=== PATIENT | male | born 1950 | race Caucasian/White ===

== ENCOUNTER 2021-05-07 10:10 | Inpatient (IN) | payer MEDICARE, OTHER ==
[~2021-05-07] VITALS: Ht 180.3 cm; Wt 92.0 kg
[2021-05-07] MEDS ORDERED: VENTAER INH (10:48)
[2021-05-07 10:52] LABS: BASO % 0.2 % (0.0-1.0); EOS % 0.2 % (0.0-3.0); HEMATOCRIT 44.3 % (42.0-52.0); HEMOGLOBIN 15.2 g/dl (13.5-17.5); LYMPH # 0.9 10^3/uL (1.5-5.0); LYMPH % 9.3 % (24.0-44.0); MEAN CORPUSCULAR HEMOGLOBIN 31.1 pg (27.0-33.0); MEAN CORPUSCULAR HGB CONC 34.3 g/dl (32.0-36.5); MEAN CORPUSCULAR VOLUME 90.6 fl (80.0-96.0); MONO # 0.6 10^3/uL (0.0-0.8); MONO % 6.3 % (2.0-8.0); NEUTROPHILS # 8.2 10^3/uL (1.5-8.5); NEUTROPHILS % 83.1 % (36.0-66.0); PLATELET COUNT, AUTOMATED 357 10^3/uL (150-450); RED BLOOD COUNT 4.89 10^6/uL (4.30-6.10); WHITE BLOOD COUNT 9.9 10^3/uL (4.0-10.0)
[2021-05-07 11:15] LABS: BLOOD UREA NITROGEN 20 MG/DL (7-18); CALCIUM LEVEL 8.5 MG/DL (8.8-10.2); CARBON DIOXIDE LEVEL 25 MEQ/L (21-32); CHLORIDE LEVEL 104 MEQ/L (98-107); CREATININE FOR GFR 1.28 MG/DL (0.70-1.30); GLUCOSE, FASTING 145 MG/DL (70-100); POTASSIUM SERUM 3.9 MEQ/L (3.5-5.1); SODIUM LEVEL 139 MEQ/L (136-145)
--- NOTE | 2021-05-07 11:15 | REP ---
INDICATION: DYSPNEA/COUGH. COMPARISON: None. TECHNIQUE: AP portable seated, lordotic. FINDINGS: EKG leads overlie the chest. Lung urena show some basilar fibrotic change on the left greater than right. No gross effusion, dense consolidation with air bronchograms or parenchymal mass. The patient is rotated slightly towards the right. The aorta is a tortuous. The airway is intact. There is no gross cardiomegaly or edema. IMPRESSION: 1. Some basilar fibrotic changes right greater than left without dense consolidation with air bronchograms, gross effusion, cardiomegaly or judith edema. Tortuous aorta is evident. Bones grossly intact. No free air. <Electronically signed by Stefan Elliott > 05/07/21 1111
[2021-05-07 11:16] LABS: ALBUMIN 2.8 GM/DL (3.2-5.2); ALT/SGPT 47 U/L (12-78); BILIRUBIN,DIRECT 0.5 MG/DL (0.0-0.2); BILIRUBIN,TOTAL 1.1 MG/DL (0.2-1.0); TOTAL PROTEIN 6.7 GM/DL (6.4-8.2)
[2021-05-07] MEDS ORDERED: dexameTHASONE 4 MG/ML 1ML VIAL (J1100 PER 1MG) IV ONE (11:25)
[2021-05-07] MEDS: COMBIVENT RESPIMAT 100-20MCG INHALER 4GM INH SCH ×7 (11:41→23:19)
[2021-05-07] MEDS ORDERED: ALBUTEROL 90 MCG/ACT 8GM HFA INHALER INH PRN (12:00)
[2021-05-07] MEDS ORDERED: ACETAMINOPHEN TAB 650MG DOSE (2X325MG) PO PRN (12:00)
--- NOTE | 2021-05-07 12:01 | HPEPDOC ---
[facility] Medical History & Physical Date of Admission May 07, 2021 Date of Service: May 07, 2021 Attending Physician: Jhoana Diaz MD History and Physical CHIEF COMPLAINT: increased weakness, SOB HISTORY OF PRESENT ILLNESS: Patient is a 70-year-old male with no significant past medical history who presented to [facility] emergency room with the chief complaint of increased weakness and shortness of breath.Patient recently drove to [place] to see his family, arrived on 04/26/21. Patient states he started feeling run down, lethargic 04/25/21. He says he had fevers, chills, some nonbloody diarrhea, productive cough of green/white color, lightheadedness, dizziness, increase weakness, decreased intake of fluids and food. He was tested on 04/26/21 and COVID-19, he then came back to [place]. He called the Dept of Health when he came back and tested positive again at the [facility]. Denies n/v/d, abdominal pain. Today when he went to brush his teeth he was increasingly weak and felt like he was going to fall over. He denies falls but this was concerning as he lives alone. He has not been vaccinated. Was brought to the emergency room to be further evaluated. In the ER, vital signs showed temperature 96.3, heart rate 75, respiratory rate 20, 125/72, oxygen saturation on room air 8788 percent. He is placed on 2 L and saturating at 93%. The patient had obvious shortness of breath with ambulation a nd movement. He appeared to be weaker. Chest x-ray did not show concern for pneumonia. WBC was within normal limits. Other labs were within normal limits. The patient was admitted with a diagnosis of shortness of breath, hypoxia secondary to COVID 19 infection. ROS: Neg except for what is mentioned above PAST MEDICAL HISTORY: None PAST SURGICAL HISTORY: None SOCIAL HISTORY: Denies smoking, drinking, illicit drug use. Very active patient, nordic walks frequently. Patient lives alone. PCP- Dr. Carroll FAMILY HISTORY: Father- HTN, DM. at 69 MOther- lung cancer. in 50's ALLERGIES: Please see below. HOME MEDICATIONS: Please see below. PHYSICAL EXAMINATION: VS: 96.3, heart rate 75, respiratory rate 20, 125/72, oxygen saturation on room air 8788 percent. He is placed on 2 L and saturating at 93%. CONSTITUTIONAL: appears lethargic, resting in bed, AAO x 3 EYES: PERRLA, EOM intact HENT, MOUTH: Normocephalic, atraumatic, moist mucous membranes, NC in place NECK: SUPPLE, no JVD, no lymphadenopathy, no carotid bruit CV: Regular rate and rhythm, S1S2 normal, no murmurs/rubs/gallops RESPIRATORY: Clear to auscultation bilaterally, no rales/rhonchi/wheezes GI: BS positive in 4 quadrants, soft, nontender, nondistended, no rebound or guarding, no organomegaly : Deferred MUSCULOSKELETAL: Normal ROM. No cyanosis, clubbing, swelling, joint deformity, extremity edema INTEGUMENTARY: Intact, no rashes, no lesions, no erythema NEUROLOGIC: Cranial Nerves II-XII are intact, no focal deficits PSYCHIATRIC: tearful with examination LABORATORY DATA: Please see below IMAGING: CXR: 1. Some basilar fibrotic changes right greater than left without dense consolida tion with air bronchograms, gross effusion, cardiomegaly or judith edema. Tortuous aorta is evident. Bones grossly intact. No free air. ASSESSMENT: 70-year-old male with no significant past medical history admitted with a diagnosis of shortness of breath, hypoxia secondary to COVID 19 infection. PLAN: Shortness of breath, hypoxia secondary to Covid 19 infection -Currently saturating well on 2 L nasal cannula -ABG shows PO2 60s, pH 7.5- primary respiratory alkalosis likely secondary to hyperventilation. -Follow-up procalcitonin and BNP -Chest x-ray above -Started on remdesivir, dexamethasone, supplemental O2, incentive spirometry, awake pronation -Covid 19 labs ordered -Precautions Weakness 2/2 to COVID-19 infection, dehydration -Encourage fluid and food if possible -Started on IV fluids -Follow-up PT/OT eval -Treatment for Covid 19 above DVT prophylaxis -lovenox DISPOSITION: Admitted to Covid unit. PT/OT. Vital Signs Vital Signs Date Time Temp Pulse Resp B/P (MAP) Pulse Ox O2 Delivery O2 Flow Rate FiO2 05/07/21 11:28 88 Room Air 05/07/21 10:47 2.0 05/07/21 10:33 96.3 05/07/21 10:30 75 20 125/72 (89) Laboratory Data Labs 24H Laboratory Tests 2 05/07/21 10:40: Immature Granulocyte % (Auto) 0.9, Neutrophils (%) (Auto) 83.1H, Lymphocytes (%) (Auto) 9.3L, Monocytes (%) (Auto) 6.3, Eosinophils (%) (Auto) 0.2, Basophils (%) (Auto) 0.2, Neutrophils # (Auto) 8.2, Lymphocytes # (Auto) 0.9L, Monocytes # (Auto) 0.6, Eosinophils # (Auto) 0.0, Basophils # (Auto) 0.0, Nucleated Red Blood Cells % (auto) 0.0, POC Troponin I (Misc) 0.01, Anion Gap 10, Glomerular Filtration Rate 59.0, Calcium Level 8.5L, Total Bilirubin 1.1H, Direct Bilirubin 0.5H, Aspartate Amino Transf (AST/SGOT) 58H, Alanine Aminotransferase (ALT/SGPT) 47, Alkaline Phosphatase 120H, Total Protein 6.7, Albumin 2.8L, Albumin/Globulin Ratio 0.7 CBC/BMP Laboratory Tests 05/07/21 10:40 Microbiology Microbiology 05/07/21 Blood Culture, Received Pending 05/07/21 Blood Culture, Received Pending Home Medications Scheduled Salmeterol/Fluticasone (Advair 250-50 Diskus) 1 Each Blst.w.dev, 1 PUFF INH DAILY Scheduled PRN Albuterol Sulfate (Ventolin Hfa) 18 Gm Hfa.aer.ad, 2 PUFF INH Q4H PRN for wheezing Allergies Coded Allergies: No Known Allergies (Unverified , 05/07/21) A-FIB/CHADSVASC A-FIB History Current/History of A-Fib/PAF?: No Current PO Anticoag Therapy: No Age/Risk Factor Scoring CHADSVASC: CHADSVASC Response (Comments) Value Age Risk Factor Age 65-74 years old 1 Gender Risk Factor Male 0 Hx of CHF No 0 Hx of HTN No 0 Hx of Stroke/TIA/or VTE No 0 Hx of Diabetes No 0 Hx of Vascular Disease No 0 Total 1 Treatment Treatment ordered: Other Other anticoagulant ordered: Jhoana Xie MD May 07, 2021 12:01
[2021-05-07 12:05] LABS: ABG HCO3 18.8 MEQ/L (22.0-26.0); ABG O2 SATURATION 95.1 % (95.0-99.0); ABG PARTIAL PRESSURE CO2 21.5 mmHg (35.0-45.0); ABG STANDARD HCO3 23.6 MEQ/L (22.0-26.0); ABG TOTAL CO2 19.5 MEQ/L (23.0-31.0)
[2021-05-07] MEDS: NS 1,000 ML IV SCH (12:13)
[2021-05-07 12:16] LABS: C REACTIVE PROTEIN QUANTITATIV 7.32 MG/DL (0.00-0.30); FERRITIN 1328 NG/ML (26-388); LDH LACTATE DEHYDROGENASE 525 U/L (87-241); MAGNESIUM LEVEL 2.3 MG/DL (1.8-2.4)
[2021-05-07] MEDS ORDERED: ADV250INH INH (12:17)
[2021-05-07] MEDS ORDERED: HOME MED LIST COMPLETE! XX SCH (12:20)
--- NOTE | 2021-05-07 12:51 | ECGEPIP ---
[facility] - ED Test Date: 2021-05-07 Pat Name: LORETTA BLACK Department: Room: - Gender: Male Loan Teller: JChanelle : 1950 Requested By: Corey Olivo Order Number: [id number] Reading MD: Corey Olivo Measurements Intervals [place] Rate: 79 P: 37 AK: 132 QRS: -9 QRSD: 94 T: -39 QT: 374 QTc: 428 Interpretive Statements Normal sinus rhythm Nonspecific T wave abnormality No prior ECG for comparison Electronically Signed on 05-07-2021 12:50:49 EDT by Corey Olivo
[2021-05-07 13:00] VITALS: BP 128/75
[2021-05-07 13:15] LABS: INFLUENZA A AMPLIFICATION NEGATIVE (NEGATIVE); INFLUENZA B AMPLIFICATION NEGATIVE (NEGATIVE)
[2021-05-07] MEDS: ENOXAPARIN 40MG/0.4ML SYRINGE (J1650 PER 10MG) SC SCH (13:24)
[2021-05-07 13:56] LABS: NT-PRO BNP 282 PG/ML (<125); TROPONIN I < 0.02 NG/ML (< 0.10)
[2021-05-07 16:00] VITALS: O2SAT 92
[2021-05-07] MEDS ORDERED: REMDESIVIR 200 MG in NS 250 ML IV ONE (16:00)
[2021-05-07] MEDS ORDERED: SODIUM CHLORIDE 0.9% INJ 10 ML SYR IV ONE (18:00)
[2021-05-07 20:00] VITALS: O2SAT 96
[2021-05-07 22:00] VITALS: BP 133/86
[2021-05-08] VITALS (9 sets, daily range): BP systolic 126–138; BP diastolic 66–78; O2SAT 91–99
[2021-05-08] MEDS: NS 1,000 ML IV SCH ×2 (00:22→08:54)
[2021-05-08] MEDS: COMBIVENT RESPIMAT 100-20MCG INHALER 4GM INH SCH ×5 (03:34→20:03)
[2021-05-08 06:40] LABS: HEMOGLOBIN 14.1 g/dl (13.5-17.5); MEAN CORPUSCULAR HEMOGLOBIN 31.2 pg (27.0-33.0); MEAN CORPUSCULAR HGB CONC 34.4 g/dl (32.0-36.5); MEAN CORPUSCULAR VOLUME 90.7 fl (80.0-96.0); PLATELET COUNT, AUTOMATED 322 10^3/uL (150-450); RED BLOOD COUNT 4.52 10^6/uL (4.30-6.10); WHITE BLOOD COUNT 8.1 10^3/uL (4.0-10.0)
[2021-05-08 07:04] LABS: ALBUMIN 2.4 GM/DL (3.2-5.2); ALT/SGPT 37 U/L (12-78); BILIRUBIN,TOTAL 0.5 MG/DL (0.2-1.0); BLOOD UREA NITROGEN 21 MG/DL (7-18); CARBON DIOXIDE LEVEL 24 MEQ/L (21-32); CHLORIDE LEVEL 110 MEQ/L (98-107); CREATININE FOR GFR 0.85 MG/DL (0.70-1.30); GLOMERULAR FILTRATION RATE > 60.0 (>42); GLUCOSE, FASTING 105 MG/DL (70-100); POTASSIUM SERUM 4.3 MEQ/L (3.5-5.1); SODIUM LEVEL 141 MEQ/L (136-145); TOTAL PROTEIN 6.1 GM/DL (6.4-8.2)
[2021-05-08] MEDS: dexameTHASONE 20MG/5ML VIAL (J1100 PER 1MG) IV SCH (08:45)
[2021-05-08] MEDS: ENOXAPARIN 40MG/0.4ML SYRINGE (J1650 PER 10MG) SC SCH (08:46)
[2021-05-08] MEDS ORDERED: REMDESIVIR 100 MG in NS 250 ML IV SCH (16:00)
--- NOTE | 2021-05-08 16:48 | IPNPDOC ---
Date Seen The patient was seen on 05/08/21. Progress Note SUBJECTIVE: States to feel mildly improved today, remains on 2 L nasal cannula and encouraging to wean down. PT/OT tomorrow. Denies chest pain, increased shortness of breath, nausea, vomiting. OBJECTIVE: PHYSICAL EXAMINATION: VS: Please see below CONSTITUTIONAL: resting in bed, AAO x 3 EYES: PERRLA, EOM intact HENT, MOUTH: Normocephalic, atraumatic, moist mucous membranes, NC in place NECK: SUPPLE, no JVD, no lymphadenopathy, no carotid bruit CV: Regular rate and rhythm, S1S2 normal, no murmurs/rubs/gallops RESPIRATORY: Clear to auscultation bilaterally, no rales/rhonchi/wheezes GI: BS positive in 4 quadrants, soft, nontender, nondistended, no rebound or guarding, no organomegaly : Deferred MUSCULOSKELETAL: Normal ROM. No cyanosis, clubbing, swelling, joint deformity, extremity edema INTEGUMENTARY: Intact, no rashes, no lesions, no erythema NEUROLOGIC: Cranial Nerves II-XII are intact, no focal deficits PSYCHIATRIC: tearful with examination LABORATORY DATA: Please see below IMAGING: CXR: 1. Some basilar fibrotic changes right greater than left without dense con solidation with air bronchograms, gross effusion, cardiomegaly or judith edema. Tortuous aorta is evident. Bones grossly intact. No free air. ASSESSMENT: 70-year-old male with no significant past medical history admitted with a diagnosis of shortness of breath, hypoxia secondary to COVID 19 infec tion. PLAN: Shortness of breath, hypoxia secondary to Covid 19 infection -Currently saturating well on 2 L nasal cannula, attempting to wean down -Procalcitonin low, BNP low -Chest x-ray above -C/w remdesivir, dexamethasone, supplemental O2, incentive spirometry, awake pronation -Covid 19 labs ordered -Precautions Weakness 2/2 to COVID-19 infection, dehydration -Encourage fluid and food if possible -Stopped IV fluids, encourage PO intake of food and fluids -Follow-up PT/OT eval -Treatment for Covid 19 above DVT prophylaxis -lovenox DISPOSITION: Admitted to Covid unit. PT/OT. Goal is home VS, I&O, 24H, Fishbone Vital Signs/I&O Vital Signs Date Time Temp Pulse Resp B/P (MAP) Pulse Ox O2 Delivery O2 Flow Rate FiO2 05/08/21 15:04 62 05/08/21 14:00 96.5 18 126/72 (90) 95 Nasal Cannula 2.0 I&O- Last 24 Hours up to 6 AM 05/08/21 06:00 Intake Total 745 ml Balance 745 ml Laboratory Data 24H LABS Laboratory Tests 2 05/08/21 06:15: Nucleated Red Blood Cells % (auto) 0.0, Anion Gap 7L, Glomerular Filtration Rate > 60.0, Calcium Level 8.0L, Total Bilirubin 0.5#, Aspartate Amino Transf (AST/SGOT) 32, Alanine Aminotransferase (ALT/SGPT) 37, Alkaline Phosphatase 98, Total Protein 6.1L, Albumin 2.4L, Albumin/Globulin Ratio 0.6 CBC/BMP Laboratory Tests 05/08/21 06:15 Microbiology Microbiology 05/07/21 Blood Culture - Preliminary, Resulted No growth after 24 hours . All specim... 05/07/21 Blood Culture - Preliminary, Resulted No growth after 24 hours . All specim... Jhoana Diaz MD May 08, 2021 16:48
[2021-05-08] MEDS ORDERED: SODIUM CHLORIDE 0.9% INJ 10 ML SYR IV SCH (17:00)
[2021-05-09] VITALS: O2SAT 94
[2021-05-09 04:00] VITALS: O2SAT 94
[2021-05-09 06:00] VITALS: BP 125/59
[2021-05-09 06:30] LABS: HEMATOCRIT 39.2 % (42.0-52.0); HEMOGLOBIN 13.7 g/dl (13.5-17.5); MEAN CORPUSCULAR HEMOGLOBIN 31.3 pg (27.0-33.0); MEAN CORPUSCULAR HGB CONC 34.9 g/dl (32.0-36.5); MEAN CORPUSCULAR VOLUME 89.5 fl (80.0-96.0); PLATELET COUNT, AUTOMATED 411 10^3/uL (150-450); RED BLOOD COUNT 4.38 10^6/uL (4.30-6.10); WHITE BLOOD COUNT 11.5 10^3/uL (4.0-10.0)
[2021-05-09 06:44] LABS: INR 0.95; PROTHROMBIN TIME 13.1 SECONDS (12.7-14.5)
[2021-05-09 06:45] LABS: PARTIAL THROMBOPLASTIN TIME 31.3 SECONDS (25.9-37.0)
[2021-05-09 07:09] LABS: ALBUMIN 2.2 GM/DL (3.2-5.2); ALT/SGPT 33 U/L (12-78); BILIRUBIN,TOTAL 0.4 MG/DL (0.2-1.0); BLOOD UREA NITROGEN 25 MG/DL (7-18); CALCIUM LEVEL 8.7 MG/DL (8.8-10.2); CARBON DIOXIDE LEVEL 22 MEQ/L (21-32); CHLORIDE LEVEL 109 MEQ/L (98-107); CPK CREATINE PHOSPHOKINASE 100 U/L (39-308); CREATININE FOR GFR 0.91 MG/DL (0.70-1.30); FERRITIN 1028 NG/ML (26-388); GLOMERULAR FILTRATION RATE > 60.0 (>42); GLUCOSE, FASTING 107 MG/DL (70-100); LDH LACTATE DEHYDROGENASE 350 U/L (87-241); NT-PRO BNP 255 PG/ML (<125); POTASSIUM SERUM 3.8 MEQ/L (3.5-5.1); SODIUM LEVEL 140 MEQ/L (136-145); TOTAL PROTEIN 6.3 GM/DL (6.4-8.2); TROPONIN I < 0.02 NG/ML (< 0.10)
[2021-05-09 08:00] VITALS: O2SAT 93
[2021-05-09] MEDS: dexameTHASONE 20MG/5ML VIAL (J1100 PER 1MG) IV SCH (08:16)
[2021-05-09] MEDS: ENOXAPARIN 40MG/0.4ML SYRINGE (J1650 PER 10MG) SC SCH (08:17)
[2021-05-09] MEDS ORDERED: PRED10TA2 PO (08:18)
[2021-05-09] MEDS: COMBIVENT RESPIMAT 100-20MCG INHALER 4GM INH SCH ×2 (08:47)
--- NOTE | 2021-05-09 20:00 | DS.PDOC ---
Discharge Summary General Date of Admission May 07, 2021 at 11:40 Date of Discharge 05/09/21 Attending Physician: Jhoana Diaz MD Discharge Summary PROCEDURES PERFORMED DURING STAY: None ADMITTING DIAGNOSES: Shortness of breath, hypoxia secondary to Covid 19 infection Weakness 2/2 to COVID-19 infection Dehydration DISCHARGE DIAGNOSES: Shortness of breath, hypoxia secondary to Covid 19 infection Weakness 2/2 to COVID-19 infection Dehydration COMPLICATIONS/CHIEF COMPLAINT: Covid,Hypoxia. HISTORY OF PRESENT ILLNESS: Patient is a 70-year-old male with no significant past medical history who presented to [facility] emergency room with the chief complaint of increased weak ness and shortness of breath.Patient recently drove to [place] to see his family, arrived on 04/26/21. Patient states he started feeling run down, lethargic 04/25/21. He says he had fevers, chills, some nonbloody diarrhea, productive cough of green/white color, lightheadedness, dizziness, increase w eakness, decreased intake of fluids and food. He was tested on 04/26/21 and COVID-19, he then came back to [place]. He called the Dept of Health when he came back and [facility] Denies n/v/d, abdominal pain. Today when he went to brush his teeth he was increasingly weak and felt like he was going to fall over. He denies falls but this was concerning as he lives alone. He has not been vaccinated. Was brought to the emergency room to be further evaluated. HOSPITAL COURSE: In the ER, vital signs showed temperature 96.3, heart rate 75, respiratory rate 20, 125/72, oxygen saturation on room air 8788 percent. He is placed on 2 L and saturating at 93%. The patient had obvious shortness of breath with ambulation and movement. He appeared to be weaker. Chest x-ray did not show concern for pneumonia. WBC was within normal limits. Other labs were within normal limits. The patient was admitted with a diagnosis of shortness of breath, hypoxia secondary to COVID 19 infection. While admitted the following issues were addressed: Shortness of breath, hypoxia secondary to Covid 19 infection -Weaned off O2, on RA -Chest x-ray: NAD -Treated with remdesivir, dexamethasone, supplemental O2, incentive spirometry, awake pronation -D/c home today with steroid taper x 10 days, f/u with PCP Weakness 2/2 to COVID-19 infection, dehydration -Much improved, assessed by PT who cleared for home -Encourage fluid and food if possible DISCHARGE MEDICATIONS: Please see below. ALLERGIES: Please see below. PHYSICAL EXAMINATION: VS: Please see below CONSTITUTIONAL: resting in bed, AAO x 3 EYES: PERRLA, EOM intact HENT, MOUTH: Normocephalic, atraumatic, moist mucous membranes, NC in place NECK: SUPPLE, no JVD, no lymphadenopathy, no carotid bruit CV: Regular rate and rhythm, S1S2 normal, no murmurs/rubs/gallops RESPIRATORY: Clear to auscultation bilaterally, no rales/rhonchi/wheezes GI: BS positive in 4 quadrants, soft, nontender, nondistended, no rebound or guarding, no organomegaly : Deferred MUSCULOSKELETAL: Normal ROM. No cyanosis, clubbing, swelling, joint deformity, extremity edema INTEGUMENTARY: Intact, no rashes, no lesions, no erythema NEUROLOGIC: Cranial Nerves II-XII are intact, no focal deficits PSYCHIATRIC: tearful with examination LABORATORY DATA: Please see below IMAGING: CXR: 1. Some basilar fibrotic changes right greater than left without dense consolidation with air bronchograms, gross effusion, cardiomegaly or judith edema. Tortuous aorta is evident. Bones grossly intact. No free air. PROGNOSIS: Good ACTIVITY: As tolerated DIET: Regular DISPOSITION: Home, Self-Care. DISCHARGE INSTRUCTIONS: 1. Please follow up with your primary care provider after discharge within 1-2 weeks. 2. Appointment scheduled for 05/16/21 at 10 am. 3. If you should have worsening shortness of breath, fevers, chills, chest pain please be seen by a medical professional. ITEMS TO FOLLOWUP ON ON OUTPATIENT: None DISCHARGE CONDITION: Stable TIME SPENT ON DISCHARGE: 35 minutes. Vital Signs/I&Os Vital Signs Date Time Temp Pulse Resp B/P (MAP) Pulse Ox O2 Delivery O2 Flow Rate FiO2 05/09/21 08:00 93 Room Air 05/09/21 06:00 98.3 88 18 125/59 (81) 6.0 I&O- Last 24 Hours up to 6 AM 05/09/21 06:00 Intake Total 1000 ml Balance 1000 ml Laboratory Data Labs 24H Laboratory Tests 2 05/09/21 06:16: Nucleated Red Blood Cells % (auto) 0.0, Prothrombin Time 13.1, Prothromb Time International Ratio 0.95, Activated Partial Thromboplast Time 31.3, Fibrinogen 646H, Anion Gap 9, Glomerular Filtration Rate > 60.0, Calcium Level 8.7L, Ferritin 1028H, Total Bilirubin 0.4, Aspartate Amino Transf (AST/SGOT) 28, Alanine Aminotransferase (ALT/SGPT) 33, Alkaline Phosphatase 82, Lactate Dehydrogenase 350H, Total Creatine Kinase 100, Troponin I < 0.02, QV-Gsr-D-Type Natriuretic Peptide 255H, Total Protein 6.3L, Albumin 2.2L, Albumin/Globulin Ratio 0.5, Procalcitonin <0.05 CBC/BMP Laboratory Tests 05/09/21 06:16 Microbiology Microbiology 05/07/21 Blood Culture - Preliminary, Resulted No Growth after 48 hours. All Specime... 05/07/21 Blood Culture - Preliminary, Resulted No Growth after 48 hours. All Specime... Discharge Medications Scheduled Prednisone (Prednisone) 10 Mg Tablet, 40 MG PO TAPER Take 4 tabs daily x 3 days, then 3 tabs daily x 3 days, then 2 tabs daily x 3 days, then 1 tab daily x 3 days and stop Salmeterol/Fluticasone (Advair 250-50 Diskus) 1 Each Blst.w.dev, 1 PUFF INH DAILY, (Reported) Scheduled PRN Albuterol Sulfate (Ventolin Hfa) 18 Gm Hfa.aer.ad, 2 PUFF INH Q4H PRN for wheezing, (Reported) Allergies Coded Allergies: No Known Allergies (Unverified , 05/07/21) Jhoana Diaz MD May 09, 2021 20:00
== END 2021-05-09 12:24 | disposition home or self-care (01) | DRG 179 ==
LOC: M ED 10:10 → M ED INP 11:40 → ENRESERV 12:00 → M 4MAIN 13:00
PROVIDERS: ADMIT Internal Medicine; ATTEND Internal Medicine
DX: U07.1 COVID-19 (principal); E86.0 Dehydration

== ENCOUNTER → 2021-09-12 | Outpatient (CLI) | payer OTHER ==
[~2021-09-12] MED LIST: ADV250INH INH; PRED10TA2 PO; VENTAER INH
== END ==
LOC: M CARPUL 10:36
PROVIDERS: ATTEND Pediatrics
DX: R01.1 Cardiac murmur, unspecified (principal); Z86.16 Personal history of COVID-19

== ENCOUNTER → 2023-05-16 | Outpatient (REF) | payer OTHER ==
[2023-05-16 13:38] LABS: ALBUMIN 3.7 G/DL (3.2-5.2); ALKALINE PHOSPHATASE 73 U/L (46-116); ALT/SGPT 21 U/L (7.0-40); AST/SGOT 21 U/L (<34); BILIRUBIN,TOTAL 0.3 MG/DL (0.3-1.2); BLOOD UREA NITROGEN 18 MG/DL (9-23); CARBON DIOXIDE LEVEL 24 MMOL/L (20-31); CHLORIDE LEVEL 109 MMOL/L (98-107); CHOLESTEROL LEVEL 262 MG/DL (<200); CHOLESTEROL RISK RATIO 7.23 (<5); CREATININE FOR GFR 1.02 MG/DL (0.70-1.30); GLOMERULAR FILTRATION RATE > 60.0 (>42); GLUCOSE, FASTING 92 MG/DL (74-106); HDL CHOLESTEROL 36.2 MG/DL (>40); LDL CHOLESTEROL 197.6 MG/DL (<100); NON-HDL-C 225.8 MG/DL; POTASSIUM SERUM 4.6 MMOL/L (3.5-5.1); SODIUM LEVEL 141 MMOL/L (136-145); TOTAL 25(OH) VITAMIN D 28.5 NG/ML (20.0-100.0); TOTAL PROTEIN 6.7 G/DL (5.7-8.2); TRIGLYCERIDES LEVEL 141 MG/DL (<150)
[2023-05-16 14:10] LABS: HEMOGLOBIN A1c 5.2 % (4.0-6.0)
== END ==
LOC: M LAB REF 12:36
PROVIDERS: ATTEND Pediatrics
DX: Z12.5 Encounter for screening for malignant neoplasm of prostate (principal); E66.9 Obesity, unspecified; E55.9 Vitamin D deficiency, unspecified; E07.9 Disorder of thyroid, unspecified
CPT/HCPCS: 80053; 80061; 82306; 83036; 84443; G0103

== ENCOUNTER → 2023-08-06 | Outpatient (REF) | payer OTHER ==
[~2023-08-06] MED LIST changes: +ALBU2.5V10 NEB; +IPRA2IN NEB; +NEBU1EAC78 MC; +PRED20TA PO
[2023-08-06 13:13] LABS: THYROID STIMULATING HORMONE 5.207 uIU/ML (0.55-4.78)
== END ==
LOC: M LAB REF 12:06
PROVIDERS: ATTEND Pediatrics
DX: R94.6 Abnormal results of thyroid function studies (principal)

== ENCOUNTER 2023-08-09 10:11 | Emergency (ER) | payer OTHER ==
[~2023-08-09] VITALS: Ht 177.8 cm; Wt 99.1 kg
[~2023-08-09 10:11] MED LIST changes: -ALBU2.5V10 NEB; -IPRA2IN NEB; -NEBU1EAC78 MC; -PRED20TA PO
[2023-08-09] MEDS: predniSONE 20 MG TAB PO ONE (10:49)
[2023-08-09 10:53] LABS: VENOUS O2 SATURATION 77.2 % (60.0-80.0); VENOUS PARTIAL PRESSURE CO2 30.6 mmHg (38.0-50.0); VENOUS PARTIAL PRESSURE O2 37.1 mmHg (30.0-50.0); VENOUS PH 7.433 UNITS (7.330-7.430); VENOUS STANDARD HCO3 21.5 MMOL/L; VENOUS TOTAL CO2 20.9 MMOL/L (24.0-28.0)
[2023-08-09 11:00] LABS: BASO % 0.3 % (0.0-1.0); EOS % 0.2 % (0.0-3.0); HEMATOCRIT 40.3 % (42.0-52.0); HEMOGLOBIN 14.2 g/dl (13.5-17.5); LYMPH # 0.8 10^3/uL (1.5-5.0); MEAN CORPUSCULAR HEMOGLOBIN 32.2 pg (27.0-33.0); MEAN CORPUSCULAR HGB CONC 35.2 g/dl (32.0-36.5); MEAN CORPUSCULAR VOLUME 91.4 fl (80.0-96.0); MONO # 1.1 10^3/uL (0.0-0.8); MONO % 6.9 % (2.0-8.0); NEUTROPHILS # 13.7 10^3/uL (1.5-8.5); NEUTROPHILS % 86.9 % (36.0-66.0); PLATELET COUNT, AUTOMATED 314 10^3/uL (150-450); RED BLOOD COUNT 4.41 10^6/uL (4.30-6.10); WHITE BLOOD COUNT 15.7 10^3/uL (4.0-10.0)
[2023-08-09 11:21] LABS: ALBUMIN 3.5 G/DL (3.2-5.2); ALKALINE PHOSPHATASE 85 U/L (46-116); ALT/SGPT 25 U/L (7.0-40); AST/SGOT 21 U/L (<34); BILIRUBIN,DIRECT 0.2 MG/DL (<0.4); BILIRUBIN,TOTAL 0.7 MG/DL (0.3-1.2); BLOOD UREA NITROGEN 17 MG/DL (9-23); CALCIUM LEVEL 8.8 MG/DL (8.3-10.6); CARBON DIOXIDE LEVEL 23 MMOL/L (20-31); CHLORIDE LEVEL 107 MMOL/L (98-107); GLOMERULAR FILTRATION RATE > 60.0 (>42); GLUCOSE, FASTING 131 MG/DL (74-106); SODIUM LEVEL 139 MMOL/L (136-145); TOTAL PROTEIN 6.7 G/DL (5.7-8.2)
[2023-08-09] MEDS: IPRATROPIUM 0.5MG/ALBUTEROL 2.5MG INH SOL UD 3ML (DUONEB) NEB ONE (12:23)
[2023-08-09 12:42] VITALS: O2SAT 96
[2023-08-09] MEDS ORDERED: ALBU2.5V10 NEB (12:49)
[2023-08-09] MEDS ORDERED: PRED20TA PO (12:49)
[2023-08-09] MEDS ORDERED: IPRA2IN NEB (12:50)
[2023-08-09 13:11] VITALS: O2SAT 93
[2023-08-09 13:15] VITALS: BP 109/55
[2023-08-09] MEDS ORDERED: NEBU1EAC78 MC (13:21)
[2023-08-09 13:27] VITALS: TEMP 97.8
== END 2023-08-09 13:29 | disposition home or self-care (01) ==
LOC: EDBD 10:11 → M ED 10:11
DX: J06.9 Acute upper respiratory infection, unspecified (principal); J44.1 Chronic obstructive pulmonary disease with (acute) exacerbation; Z79.52 Long term (current) use of systemic steroids; Z79.899 Other long term (current) drug therapy
CPT/HCPCS: 36415; 71045; 80048; 80076; 82803; 83880; 85025; 87040; 87486; 87581; 87633; 87798; 93005; 93041; 94640; 94760; 99285; J7512